=== PATIENT | female | born 1955 | race Caucasian/White ===

== ENCOUNTER 2020-05-15 23:49 | Inpatient (IN) ==
--- OUTSIDE RECORDS SUMMARY | 2020-05-15 23:52 | External Medical Summary | Continuity of Care Document ---
:1955 Author Name Gatito Boston Address Unavailable Unavailable , Care Team Providers Name Role Phone NonMNPG M.Latia Unavailable [email or web address] Active medical history not documented Allergies and Adverse Reactions Allergy history not documented Medications Medications not documented Procedures Procedures not documented Immunizations Immunizations not documented Plan of Treatment Planned Observations Planned Goals not documented Results No Known Results Results not documented
[2020-05-16 00:34] LABS: Basophils # (auto) 0.02 K/uL (0-0.2); Basophils % (auto) 0.2 %; Eosinophils # (auto) 0.17 K/uL (0-0.5); Eosinophils % (auto) 1.4 %; Hematocrit (blood only) 45.2 % (37-47); Hemoglobin 16.5 g/dL (12.0-16.0); Immature Granulocytes # (auto) 0.02 K/uL (0.00-0.02); Immature Granulocytes % (auto) 0.2 %; Lymphocytes # (auto) 1.33 K/uL (1.2-3.4); Lymphocytes % (auto) 10.7 %; Mean Corpuscular Hemoglobin 32.9 pg (25-34); Mean Corpuscular Hgb Conc 36.5 g/dL (32-36); Mean Platelet Volume 9.7 fL (7.4-10.4); Monocytes # (auto) 0.56 K/uL (0.11-0.59); Monocytes % (auto) 4.5 %; Neutrophils # (auto) 10.33 K/uL (1.4-6.5); Platelet Count 212 K/uL (130-400); RDW Coefficient of Variation 12.6 % (11.5-14.5); RDW Standard Deviation 41.6 fL (36.4-46.3); Red Blood Count 5.02 M/uL (4.2-5.4); White Blood Count 12.43 K/uL (4.8-10.8)
--- NOTE | 2020-05-16 00:40 | Emergency Department Note ---
Impression & Plan Pulmonary emboli, DKA (diabetic ketoacidoses) ED Provider Note NAME: HAMILTON CARVAJAL AGE: 65 SEX: F ARRIVES VIA: Ambulance INFORMANT: Patient ED PROVIDER(S): Dionne Miranda DO CHIEF COMPLAINT: Shortness of breath and anxiety PLAN: Disposition: Admitted to the [facility] service Condition: Guarded MEDICAL DECISION MAKING: This is a 65-year-old female patient with no PCP who presents to the emergency department complaining of anxiety and shortness of breath. Patient describes intermittent episodes of feeling anxious and as if she cannot catch her breath over the past couple of weeks. This specific episode was as a result of her son losing the one and only car richard that they had for her vehicle. According to EMS, the patient lives with her elderly and adult son in a home filled with so much stuff that it made for a very difficult extrication of this patient. The patient explained to me that she quite frequently does not get out of bed on certain days and uses a diaper. However, on some days, she does get out of bed to drive her adult son to work. She has not been to her primary care physician in many years. She became more concerned tonight because she found it quite difficult to catch her breath. CT scan confirms bilateral pulmonary emboli. The patient was also noted to have a blood sugar greater than 400 and evidence of DKA. O2 saturations were stable. ABG and electrolytes were normal. Triage Nursing notes reviewed and agree them. Additional history obtained from EMS Vital Signs: reviewed and remarkable for hypertension Differential diagnosis: PE, pneumonia, hyperglycemia, COVID-19, anxiety, CHF ER treatment provided: IV normal saline IV insulin IV heparin bolus IV heparin drip Diagnostics interpreted by me: ECG: Sinus tachycardia at 128 with a right bundle branch block and questionable ST segment elevation in the inferior leads Cardiac Monitoring: Sinus tachycardia at a rate of 120 Laboratory studies: See below Imaging studies: As per stat rad CT chest with contrast: Cardiomegaly. Atherosclerotic disease of aorta with no dissection or aneurysm. Multiple filling defects identified at the distal right pulmonary artery extending into the proximal upper or lower and middle lobe pulmonary artery and then into the mid proximal segmental branches. Similarly on the left there are filling defects identified at the distal left pulmonary artery then extending into the origin of the left upper lobe and left lower lobe pulmonary artery and corresponding mid proximal segmental branches. The RV to LV ratio is 1. Coronary artery calcifications are noted. Mild posterior dependent atelectasis otherwise clear lung parenchyma. No pleural effusion or pneumothorax. Degenerative disease of the spine. Lipoma overlying the right posterior lateral scapula. Consultation(s): None HPI: 65/F arrives for evaluation of anxiety. The patient presents to the emergency department feeling anxious and short of breath. The patient describes a similar episode just 5-6 nights ago. She has not been getting out of bed like she would normally. EMS found her hypoxic when they arrived at her home. She denies any chest pain or abdominal pain. She describes her anxiety is secondary to the fact that her adult son lost their only car richard to their vehicle. ROS: See above HPI for pertinent positives & negatives. A total of 10 systems reviewed and were otherwise negative. PAST MEDICAL HISTORY:Patient has not been to a primary care doctor many many years and denies any past medical history PAST SURGICAL HISTORY:She denies any surgeries to me FAMILY HISTORY:See Below SOCIAL HISTORY:She lives with her ; she lives with her adult son She does not smoke or drink alcohol. She does make some food for herself HOME MEDICATIONS:See Below ALLERGIES:See list VITALS:See Below PHYSICAL EXAMINATION: HEENT: Head - normocephalic and atraumatic. Pupils are equal, round, and reactive to light. Extraocular eye muscles are intact, and sclera are anicteric. Nose - moist nasal mucosa without discharge. Mouth - moist buccal mucosa. Oropharynx is nonerythematous and there is no tonsillar exudate or edema noted. Neck: Supple; no no JVD Heart: Tachycardic rate and regular rhythm. There is a normal S1 and S2 with no murmurs, clicks, or gallops appreciated. Lungs: Clear to auscultation bilaterally with no wheezes, rales, or rhonchi. Abdomen: Soft, completely nontender, nondistended, with good bowel sounds. There are no palpable pulsatile masses or hepatosplenomegaly. There is no guarding, rigidity, or rebound noted. Extremities: No evidence of cyanosis, clubbing, or edema. There are easily palpable peripheral pulses. Skin: warm and dry with good turgor and no rashes. ED COURSE: Times/Reassessments: 0005: The patient was evaluated in A4. A complete history and physical was performed. A twelve-lead EKG was obtained. An order was placed for continuous cardiac monitoring. The patient was in a sinus tachycardia at a rate of 120. The patient was bolused with 500 cc of normal saline solution. 0145: The patient was significantly hyperglycemic and was bolused with 10 Units of IV insulin 0220: The patient was reevaluated at this time and is feeling much better. O2 saturations are stable. I reviewed the results of the labs and CT scan with the patient. The patient was bolused with IV heparin and started on a heparin drip. She was given 10 mg of IV insulin. An ABG was obtained and showed no evidence of significant acidosis. I discussed the case with the [facility] hospitalist and they will evaluate for further management. I have personally spent greater than 50 minutes of critical care time in the direct management of this patient. This includes bedside care, interpretation of diagnostic studies, and testing, discussion with consultants, patient, and family members, and other required patient management activities. This 50 minutes is in excess of all separately billable procedures. Dionne Miranda DO Past Med/Surg History Social History Smoking Status: Never smoker Hx Alcohol Use: No Hx Substance Use: No Preferred Language: Mongolian Communication Ability: Effective Beliefs That Will Affect Care: Buddhist Current Living Situation: Spouse and Family Feels Safe at Home: No Would You Like to Speak to Someone About Your Situation: No Safety Concerns: Feels Safe At This Time Assistive Devices: Oxygen - Continuous Allergies Allergies Allergy/AdvReac Type Severity Reaction Status Date / Time Penicillins Allergy Intermediate Gastrointestinal Verified 05/16/20 01:13 Upset Home Meds Home Medications Medication Instructions Recorded Confirmed aspirin-caffeine [Anacin] 1 tab PO Q4H PRN 05/16/20 05/16/20 aspirin-caffeine [Elvin Back and 1 - 2 tab PO Q4 PRN 05/16/20 05/16/20 Body] Results & Data (ED) Vital Signs Vital Signs - 24 hr 05/16/20 00:09 05/16/20 00:20 05/16/20 00:30 Temperature 36.5 C Temperature Source Oral Pulse Rate 133 H 126 H Pulse Rate [Right Finger] Pulse Rate from SpO2 Sensor 125 H Respiratory Rate 20 22 Respiratory Effort / Characteristics Non-Labored Spontaneous Respiratory Depth Normal Respiratory Pattern Regular Blood Pressure 165/108 H 147/112 H Blood Pressure [Left Arm] Blood Pressure Mean 127 123 Blood Pressure Mean [Left Arm] Blood Pressure Position Lying Blood Pressure Position [Left Arm] Pulse Oximetry 83 L 95 95 Oxygen Delivery Method Room Air Nasal Cannula Nasal Cannula Oxygen Flow Rate 6 6 Sepsis Recent Fever Within 48 Hours No Sepsis New/Unexplained Change in Mental Status No Sepsis Action Taken by Nursing No Action Required 05/16/20 01:00 05/16/20 01:44 05/16/20 02:27 Temperature Temperature Source Pulse Rate 124 H Pulse Rate [Right Finger] 123 H 113 H Pulse Rate from SpO2 Sensor 124 H Respiratory Rate 14 20 24 Respiratory Effort / Characteristics Non-Labored Spontaneous Non-Labored Spontaneous Respiratory Depth Normal Normal Respiratory Pattern Regular Regular Blood Pressure 170/118 H Blood Pressure [Left Arm] 210/122 H 190/124 H Blood Pressure Mean 135 Blood Pressure Mean [Left Arm] 151 146 Blood Pressure Position Blood Pressure Position [Left Arm] Lying Lying Pulse Oximetry 94 92 92 Oxygen Delivery Method Nasal Cannula Nasal Cannula Nasal Cannula Oxygen Flow Rate 6 4 5 Sepsis Recent Fever Within 48 Hours Sepsis New/Unexplained Change in Mental Status Sepsis Action Taken by Nursing 05/16/20 03:00 05/16/20 03:37 Temperature Temperature Source Pulse Rate 116 H Pulse Rate [Right Finger] Pulse Rate from SpO2 Sensor 122 H Respiratory Rate 20 22 Respiratory Effort / Characteristics Respiratory Depth Respiratory Pattern Blood Pressure 201/136 H 214/145 H Blood Pressure [Left Arm] Blood Pressure Mean 157 168 Blood Pressure Mean [Left Arm] Blood Pressure Position Blood Pressure Position [Left Arm] Pulse Oximetry 93 93 Oxygen Delivery Method Oxygen Flow Rate Sepsis Recent Fever Within 48 Hours Sepsis New/Unexplained Change in Mental Status Sepsis Action Taken by Nursing Laboratory Data Result diagrams: 05/17/20 05:43 05/17/20 05:43 Lab Results 05/16/20 05/16/20 05/16/20 Range/Units 00:10 00:10 00:10 WBC 12.43 H (4.8-10.8) K/uL RBC 5.02 (4.2-5.4) M/uL Hgb 16.5 H (12.0-16.0) g/dL Hct 45.2 (37-47) % MCV 90.0 (80-100) fL MCH 32.9 (25-34) pg MCHC 36.5 H (32-36) g/dL RDW Std Deviation 41.6 (36.4-46.3) fL RDW Coeff of Jose Juan 12.6 (11.5-14.5) % Plt Count 212 (130-400) K/uL MPV 9.7 (7.4-10.4) fL Immature Gran % (Auto) 0.2 % Neut % (Auto) 83.0 % Lymph % (Auto) 10.7 % [place] % (Auto) 4.5 % Eos % (Auto) 1.4 % Baso % (Auto) 0.2 % Neut # (Auto) 10.33 H (1.4-6.5) K/uL Lymph # (Auto) 1.33 (1.2-3.4) K/uL [place] # (Auto) 0.56 (0.11-0.59) K/uL Eos # (Auto) 0.17 (0-0.5) K/uL Baso # (Auto) 0.02 (0-0.2) K/uL Immature Gran # (Auto) 0.02 (0.00-0.02) K/uL PT 11.1 (9.0-12.0) Seconds INR 1.1 (0.9-1.1) APTT 23.9 (21.0-31.0) Seconds PTT Ratio 0.9 D-Dimer 9100 H* (0-500) ug/L FEU ABG pH (7.35-7.45) ABG pCO2 (35-46) mmHg ABG pO2 (80-95) mmHg ABG HCO3 (19-24) mmol/L ABG O2 Saturation (90-95) % ABG Base Excess (-9-1.8) mEq/L Alfredo Test (Pos) Oxygen Given Sodium 134 L (136-145) mmol/L Potassium 3.7 (3.5-5.1) mmol/L Chloride 104 (98-107) mmol/L Carbon Dioxide 22 (21-32) mmol/L Anion Gap 8.0 (3-11) BUN 15 (7-18) mg/dl Creatinine 1.25 H (0.6-1.2) mg/dl Est Cr Clr Drug Dosing 53.7 ml/min Est GFR ( Amer) 51.5 Est GFR (Non-Af Amer) 44.5 BUN/Creatinine Ratio 12.2 (10-20) Glucose 410 H* (70-99) mg/dl POC Glucose (70-99) mg/dl Calcium 10.2 H (8.5-10.1) mg/dl Magnesium 1.8 (1.8-2.4) mg/dl Total Bilirubin 0.7 (0.2-1) mg/dl AST 25 (15-37) U/L ALT 33 (12-78) U/L Alkaline Phosphatase 140 H (45-117) U/L Troponin I 0.174 H* (0-0.045) ng/ml Total Protein 7.6 (6.4-8.2) gm/dl Albumin 3.7 (3.4-5.0) gm/dl Globulin 3.9 (2.5-4.0) gm/dl Albumin/Globulin Ratio 0.9 (0.9-2) Beta-Hydroxybutyric Acd 6.86 H (0.2-2.81) mg/dl COVID-19 Eval Order SARS-CoV-2 (PCR) (Negative) Influenza Type A (PCR) (Neg) Influenza Type B (PCR) (Neg) RSV (RT-PCR) (Neg) 05/16/20 05/16/20 05/16/20 Range/Units 00:33 00:33 03:02 WBC (4.8-10.8) K/uL RBC (4.2-5.4) M/uL Hgb (12.0-16.0) g/dL Hct (37-47) % MCV (80-100) fL MCH (25-34) pg MCHC (32-36) g/dL RDW Std Deviation (36.4-46.3) fL RDW Coeff of Jose Juan (11.5-14.5) % Plt Count (130-400) K/uL MPV (7.4-10.4) fL Immature Gran % (Auto) % Neut % (Auto) % Lymph % (Auto) % [place] % (Auto) % Eos % (Auto) % Baso % (Auto) % Neut # (Auto) (1.4-6.5) K/uL Lymph # (Auto) (1.2-3.4) K/uL [place] # (Auto) (0.11-0.59) K/uL Eos # (Auto) (0-0.5) K/uL Baso # (Auto) (0-0.2) K/uL Immature Gran # (Auto) (0.00-0.02) K/uL PT (9.0-12.0) Seconds INR (0.9-1.1) APTT (21.0-31.0) Seconds PTT Ratio D-Dimer (0-500) ug/L FEU ABG pH 7.42 (7.35-7.45) ABG pCO2 33 L (35-46) mmHg ABG pO2 65 L (80-95) mmHg ABG HCO3 21 (19-24) mmol/L ABG O2 Saturation 93.8 (90-95) % ABG Base Excess -2.5 (-9-1.8) mEq/L Alfredo Test Pos (Pos) Oxygen Given 5L Sodium (136-145) mmol/L Potassium (3.5-5.1) mmol/L Chloride (98-107) mmol/L Carbon Dioxide (21-32) mmol/L Anion Gap (3-11) BUN (7-18) mg/dl Creatinine (0.6-1.2) mg/dl Est Cr Clr Drug Dosing ml/min Est GFR ( Amer) Est GFR (Non-Af Amer) BUN/Creatinine Ratio (10-20) Glucose (70-99) mg/dl POC Glucose (70-99) mg/dl Calcium (8.5-10.1) mg/dl Magnesium (1.8-2.4) mg/dl Total Bilirubin (0.2-1) mg/dl AST (15-37) U/L ALT (12-78) U/L Alkaline Phosphatase (45-117) U/L Troponin I (0-0.045) ng/ml Total Protein (6.4-8.2) gm/dl Albumin (3.4-5.0) gm/dl Globulin (2.5-4.0) gm/dl Albumin/Globulin Ratio (0.9-2) Beta-Hydroxybutyric Acd (0.2-2.81) mg/dl COVID-19 Eval Order CovFluRsv at [facility] SARS-CoV-2 (PCR) NEGATIVE (Negative) Influenza Type A (PCR) Negative (Neg) Influenza Type B (PCR) Negative (Neg) RSV (RT-PCR) Negative (Neg) 03/27/21 Range/Units 03:35 WBC (4.8-10.8) K/uL RBC (4.2-5.4) M/uL Hgb (12.0-16.0) g/dL Hct (37-47) % MCV (80-100) fL MCH (25-34) pg MCHC (32-36) g/dL RDW Std Deviation (36.4-46.3) fL RDW Coeff of Jose Juan (11.5-14.5) % Plt Count (130-400) K/uL MPV (7.4-10.4) fL Immature Gran % (Auto) % Neut % (Auto) % Lymph % (Auto) % [place] % (Auto) % Eos % (Auto) % Baso % (Auto) % Neut # (Auto) (1.4-6.5) K/uL Lymph # (Auto) (1.2-3.4) K/uL [place] # (Auto) (0.11-0.59) K/uL Eos # (Auto) (0-0.5) K/uL Baso # (Auto) (0-0.2) K/uL Immature Gran # (Auto) (0.00-0.02) K/uL PT (9.0-12.0) Seconds INR (0.9-1.1) APTT (21.0-31.0) Seconds PTT Ratio D-Dimer (0-500) ug/L FEU ABG pH (7.35-7.45) ABG pCO2 (35-46) mmHg ABG pO2 (80-95) mmHg ABG HCO3 (19-24) mmol/L ABG O2 Saturation (90-95) % ABG Base Excess (-9-1.8) mEq/L Alfredo Test (Pos) Oxygen Given Sodium (136-145) mmol/L Potassium (3.5-5.1) mmol/L Chloride (98-107) mmol/L Carbon Dioxide (21-32) mmol/L Anion Gap (3-11) BUN (7-18) mg/dl Creatinine (0.6-1.2) mg/dl Est Cr Clr Drug Dosing ml/min Est GFR ( Amer) Est GFR (Non-Af Amer) BUN/Creatinine Ratio (10-20) Glucose (70-99) mg/dl POC Glucose 204 H (70-99) mg/dl Calcium (8.5-10.1) mg/dl Magnesium (1.8-2.4) mg/dl Total Bilirubin (0.2-1) mg/dl AST (15-37) U/L ALT (12-78) U/L Alkaline Phosphatase (45-117) U/L Troponin I (0-0.045) ng/ml Total Protein (6.4-8.2) gm/dl Albumin (3.4-5.0) gm/dl Globulin (2.5-4.0) gm/dl Albumin/Globulin Ratio (0.9-2) Beta-Hydroxybutyric Acd (0.2-2.81) mg/dl COVID-19 Eval Order SARS-CoV-2 (PCR) (Negative) Influenza Type A (PCR) (Neg) Influenza Type B (PCR) (Neg) RSV (RT-PCR) (Neg) Administered Medications Heparin Sodium/Dextrose (Heparin Sodium/Dextrose) 25,000 units in 500 mls @ 30 mls/hr IV .[id number] [facility]; Protocol Stop: 06/15/20 02:29 Last Titration: 05/17/20 06:52 Dose: 1,700 units/hr, 34 mls/hr Documented by: [id number] Cosigned by: [id number] Titration: 05/17/20 06:21 Dose: 1,700 units/hr, 34 mls/hr Documented by: [id number] Cosigned by: [id number] Titration: 05/16/20 23:03 Dose: 1,700 units/hr, 34 mls/hr Documented by: [id number] Cosigned by: [id number] Admin: 05/16/20 19:17 Dose: 1,600 units/hr, 32 mls/hr Documented by: [id number] Cosigned by: [id number] Titration: 05/16/20 19:17 Dose: 1,600 units/hr, 32 mls/hr Documented by: [id number] Cosigned by: [id number] Titration: 05/16/20 15:53 Dose: 1,600 units/hr, 32 mls/hr Documented by: [id number] Cosigned by: [id number] Titration: 05/16/20 15:00 Dose: 1,500 units/hr, 30 mls/hr Documented by: [id number] Cosigned by: [id number] Titration: 05/16/20 09:13 Dose: 1,500 units/hr, 30 mls/hr Documented by: [id number] Cosigned by: [id number] Titration: 05/16/20 07:08 Dose: 1,400 units/hr, 28 mls/hr Documented by: [id number] Cosigned by: [id number] Admin: 05/16/20 02:38 Dose: 1,400 units/hr, 28 mls/hr Documented by: [id number] Cosigned by: [id number] Insulin Aspart (Insulin Aspart 100 Units/Ml 3 Ml Pen) 0 units SC ACHS [facility] Stop: 06/15/20 07:29 Last Admin: 05/16/20 20:47 Dose: 2 units Documented by: [id number] Cosigned by: [id number] Admin: 05/16/20 17:09 Dose: 5 units Documented by: [id number] Cosigned by: [id number] Admin: 05/16/20 12:21 Dose: 9 units Documented by: [id number] Cosigned by: [id number] Admin: 05/16/20 08:13 Dose: 6 units Documented by: [id number] Cosigned by: [id number] Lisinopril (Lisinopril 20 Mg Tab) 20 mg PO QAM [facility] Stop: 06/15/20 08:59 Last Admin: 05/16/20 07:36 Dose: 20 mg Documented by: [id number] Discontinued Medications Heparin Sodium (Porcine) (Heparin Sod (Porcine) 1000 Unit/Ml 10 Ml Vial) Confirm Administered Dose 10,000 units .ROUTE .STK-MED ONE Stop: 05/16/20 02:33 Last Admin: 05/16/20 02:39 Dose: Not Given Documented by: [id number] Heparin Sodium (Porcine) (Heparin Sod (Porcine) 1000 Unit/Ml 10 Ml Vial) Confirm Administered Dose 10,000 units .ROUTE .STK-MED ONE Stop: 05/16/20 02:36 Last Admin: 05/16/20 02:37 Dose: 5,000 units Documented by: [id number] Cosigned by: [id number] Heparin Sodium/Dextrose (Heparin Iv Standard With Bolus) 1 ea IV NOW STA; Protocol Stop: 05/16/20 02:27 Last Admin: 05/16/20 02:38 Dose: Not Given Documented by: [id number] Hydralazine HCl (Hydralazine Hcl 20 Mg/Ml Vial) 10 mg IV Q4H PRN PRN Reason: Hypertension Stop: 06/15/20 04:55 Last Admin: 05/16/20 05:10 Dose: 10 mg Documented by: [id number] Hydralazine HCl (Hydralazine Hcl 20 Mg/Ml Vial) Confirm Administered Dose 20 mg .ROUTE .STK-MED ONE Stop: 05/16/20 05:04 Last Admin: 05/16/20 05:44 Dose: Not Given Documented by: [id number] Sodium Chloride (Nss) 500 mls @ 999 mls/hr IV .Q31M ONE Stop: 05/16/20 01:48 Last Infusion: 05/16/20 02:06 Dose: 0 mls/hr Documented by: [id number] Admin: 05/16/20 01:39 Dose: 999 mls/hr Documented by: [id number] Sodium Chloride (Nss) 500 mls @ 125 mls/hr IV .Q4H MOHIT Stop: 06/15/20 01:29 Last Infusion: 05/16/20 07:11 Dose: 0 mls/hr Documented by: [id number] Admin: 05/16/20 02:26 Dose: 125 mls/hr Documented by: [id number] Sodium Chloride (Nss 1000ml) 1,000 mls @ 125 mls/hr IV .Q8H MOHIT Stop: 06/15/20 05:14 Last Infusion: 05/16/20 15:58 Dose: 0 mls/hr Documented by: [id number] Admin: 05/16/20 13:12 Dose: 125 mls/hr Documented by: [id number] Infusion: 05/16/20 13:12 Dose: 0 mls/hr Documented by: [id number] Admin: 05/16/20 05:28 Dose: 125 mls/hr Documented by: [id number] Insulin Glargine (Insulin Glargine Solostar 100 Units/Ml 3 Ml Pen) 20 units SC BID MOHIT Stop: 06/15/20 08:59 Last Admin: 05/16/20 08:12 Dose: 20 units Documented by: [id number] Cosigned by: [id number] Insulin Human Regular (Novolin-R Insulin Per Unit Charge) 10 units IV NOW STA Stop: 05/16/20 02:17 Last Admin: 05/16/20 02:25 Dose: 10 units Documented by: [id number] Cosigned by: [id number] Ioversol (Optiray 320 125ml) 120 ml IV ONCE ONE Stop: 05/16/20 01:48 Last Admin: 05/16/20 01:47 Dose: 120 ml Documented by: [id number] Potassium Chloride (Potassium Chloride Crtab 20 Meq Tabcr) 40 meq PO NOW STA Stop: 05/16/20 15:52 Last Admin: 05/16/20 17:07 Dose: 40 meq Documented by: [id number] Discharge Plan Visit Data Chief Complaint: Cardiac Assessment Stated Complaint: Anxiety ED Provider: Dionne Miranda Discharge Problem: Pulmonary emboli, DKA (diabetic ketoacidoses) Patient Disposition: Admitted As Inpatient Discharge Instructions Interventions: ED Discharge Assessment Last Done: 05/16/20 04:34 Discharge Problem: Pulmonary emboli Qualifiers: Pulmonary embolism type: multiple subsegmental (without acute cor pulmonale) Qualified Code(s): I26.94 - Multiple subsegmental pulmonary emboli without acute cor pulmonale DKA (diabetic ketoacidoses) Qualifiers: Diabetes mellitus type: type 2 Diabetes mellitus complication detail: without coma Qualified Code(s): E11.10 - Type 2 diabetes mellitus with ketoacidosis without coma
[2020-05-16 00:48] LABS: Albumin Globulin Ratio 0.9 (0.9-2); Albumin Level 3.7 gm/dl (3.4-5.0); BUN Creatinine Ratio 12.2 (10-20); Bilirubin,Total 0.7 mg/dl (0.2-1); Calcium 10.2 mg/dl (8.5-10.1); Creatinine Clr Calc Pharmacy 53.7 ml/min; Est GFR (African American) 51.5; Est GFR (Non-African American) 44.5; Globulin 3.9 gm/dl (2.5-4.0); Magnesium 1.8 mg/dl (1.8-2.4); Potassium 3.7 mmol/L (3.5-5.1); Total Protein 7.6 gm/dl (6.4-8.2); Troponin I 0.174 ng/ml (0-0.045)
[2020-05-16 01:04] LABS: Beta-Hydroxybutyrate 6.86 mg/dl (0.2-2.81)
[2020-05-16 01:05] LABS: INR 1.1 (0.9-1.1); Partial Thromboplastin Ratio 0.9; Partial Thromboplastin Time 23.9 Seconds (21.0-31.0); Prothrombin Time 11.1 Seconds (9.0-12.0)
[2020-05-16 01:07] LABS: D Dimer 9100 ug/L FEU (0-500)
[2020-05-16] MEDS ORDERED: SODIUM CHLORIDE 0.9% 500 ML IV ONE (01:18)
[2020-05-16 01:26] LABS: Influenza A virus by PCR Negative (Neg); Influenza B virus by PCR Negative (Neg); RSV by PCR Negative (Neg); SARS CoV2 RNA(COVID-19) InHosp NEGATIVE (Negative)
[2020-05-16] MEDS ORDERED: SODIUM CHLORIDE 0.9% 500 ML IV SCH (01:30)
[2020-05-16] MEDS ORDERED: OPTIRAY 320 125ml IV ONE (01:47)
[2020-05-16] MEDS ORDERED: NovoLIN-R INSULIN PER UNIT CHARGE IV STA (02:16)
[2020-05-16] MEDS ORDERED: Heparin IV Adult Wt-Based Standard WITH Bolus Protocol IV STA (02:26)
[2020-05-16] MEDS ORDERED: HEPARIN SOD (PORCINE) 1000 UNIT/ML ONE ×2 (02:32→02:35)
[2020-05-16] MEDS: HEPARIN SODIUM/DEXTROSE 25,000 UNITS/500 ML BAG IV SCH ×2 (02:38→19:17)
--- NOTE | 2020-05-16 03:22 | History & Physical Report ---
Date of Service May 16, 2020 Assessment & Plan (1) Pulmonary emboli: 65-year-old female with no past medical history listed (does not have a PCP) presents with concerns of shortness of breath found to have multiple pulmonary emboli and hyperglycemia. Pulmonary emboli Chest CTA ([facility]): Multiple filling defect identified at the distal right pulmonary artery extending into the proximal upper or lower and middle lobe pulmonary artery and then into the mid proximal segmental branches. Similarly, on the left there are filling defect identified at the distal left pulmonary artery then extending into the origin of the left upper lobe and left lower lobe pulmonary artery and corresponding mid proximal segmental branches. Heparin gtt started Supplemental O2 as needed. Patient currently on 5 L nasal cannula. No home O2 requirements Venous Doppler of bilateral lower extremity pending Elevated troponin EKG: Per interpretation sinus tachycardia at 128 with a right bundle branch block and possible ST segment elevation in the inferior leads Initial troponin admission 0.174. We will continue to trend x2 every 6 hours Likely secondary to demand ischemia in setting of tachycardia. Pt with no CP complaints, lower concern for ACS Hyperglycemia On admission glucose 410, beta hydroxybutyric acid 6.86. No acidosis or AG Given IV insulin regular 10 units in ED. Repeat glucose [address] on SSI Patient with no documented history of diabetes, however does not follow with a PCP A1c in a.m. Continue IVF NSS at 125 mls/hr Hypertension No documented history, but again patient does not follow with PCP BP as high as 214/145 in ED. No s/s of end organ damage We will start patient on IRINA inhibitor in anticipation of DM diagnosis for renal protection. Titrate as necessary move forward. May very well likely need multiple medication management IV hydralazine 10 mg as needed FEN/GI: NSS at 125. DM 2 diet DVT prophylaxis: Heparin gtt CODE STATUS: Full code Dispo: Med telemetry. Patient will need a PCP on discharge History of Present Illness Chief Complaint: Shortness of breath Primary Care Provider: NO PCP 65-year-old female with no past medical history listed (does not have a PCP) presents with concerns of shortness of breath that started this evening. Similar occurrence last Monday but none ever before then. Noted that she got up from the bedroom to go to the bathroom and became dyspneic. Described as feeling like she had a panic attack, which is not new for her. Duration on and off from time EMS picked her up to arrival in ER. 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 Associated palpitations. Denies any associated chest pain, syncope o r near syncope, edema, diaphoresis. Pertinent labs: WBC 12.43, sodium 134, creatinine 1.25, glucose 410, troponin 0 0.174, beta hydroxybutyric acid 6.86 EKG: Sinus tachycardia at 128 with a right bundle branch block and possible ST segment elevation in the inferior leads ABG: pH 7.42, PCO2 33, PO2 65, HCO3 21 Chest CTA ([facility]): Multiple filling defect identified at the distal right pulmonary artery extending into the proximal upper or lower and middle lobe pulmonary artery and then into the mid proximal segmental branches. Similarly, on the left there are filling defect identified at the distal left pulmonary artery then extending into the origin of the left upper lobe and left lower lobe pulmonary artery and corresponding mid proximal segmental branches. ER course: IV heparin gtt, IV insulin human regular 10 units, NSS Allergies Allergy/AdvReac Type Severity Reaction Status Date / Time Penicillins Allergy Intermediate Gastrointestinal Verified 05/16/20 01:13 Upset Home Medications Medication Instructions Recorded Confirmed Type aspirin-caffeine [Anacin] 1 tab PO Q4H PRN 05/16/20 05/16/20 History aspirin-caffeine [Elvin Back and 1 - 2 tab PO Q4 PRN 05/16/20 05/16/20 History Body] Past Med/Surg History Social History Smoking Status: Never smoker Hx Alcohol Use: No Hx Substance Use: No Preferred Language: Argentine Communication Ability: Effective Beliefs That Will Affect Care: Confucianist Current Living Situation: Spouse and Family Feels Safe at Home: No Would You Like to Speak to Someone About Your Situation: No Safety Concerns: Feels Safe At This Time Assistive Devices: Oxygen - Continuous Review of Systems Review of Systems: All systems reviewed & are unremarkable except as noted in HPI & below Physical Exam Constitutional: WD/WN, vitals as above Eyes: PERRL, conjunctivae normal, anicteric sclerae ENMT: external ear and nose normal, oropharynx normal Respiratory: normal respiratory effort, lungs clear to auscultation Cardiovascular: Rate/Rhythm: regular rhythm and + tachycardic Gastrointestinal (Abdomen): normal bowel sounds, soft, nontender, no hepatosplenomegaly Skin: no rashes, warm and dry Psychiatric: Orientation: alert and oriented x 3 Affect: + anxious affect Results & Data Results & Data ([facility]) Vital Signs (Past 12 Hours) Vital Signs Temp Pulse Pulse Resp BP BP Pulse Ox 05/16/20 02:27 113 H 24 190/124 H 92 05/16/20 01:44 123 H 20 210/122 H 92 05/16/20 01:00 124 H 14 170/118 H 94 05/16/20 00:30 126 H 22 147/112 H 95 05/16/20 00:20 95 05/16/20 00:09 36.5 C 133 H 20 165/108 H 83 L Laboratory Results Laboratory Results - last 24 hr 05/16/20 05/16/20 05/16/20 00:10 00:10 00:10 WBC 12.43 H RBC 5.02 Hgb 16.5 H Hct 45.2 MCV 90.0 MCH 32.9 MCHC 36.5 H RDW Std Deviation 41.6 RDW Coeff of Jose Juan 12.6 Plt Count 212 MPV 9.7 Immature Gran % (Auto) 0.2 Neut % (Auto) 83.0 Lymph % (Auto) 10.7 Dixon % (Auto) 4.5 Eos % (Auto) 1.4 Baso % (Auto) 0.2 Neut # (Auto) 10.33 H Lymph # (Auto) 1.33 Dixon # (Auto) 0.56 Eos # (Auto) 0.17 Baso # (Auto) 0.02 Immature Gran # (Auto) 0.02 PT 11.1 INR 1.1 APTT 23.9 PTT Ratio 0.9 D-Dimer 9100 H* Sodium 134 L Potassium 3.7 Chloride 104 Carbon Dioxide 22 Anion Gap 8.0 BUN 15 Creatinine 1.25 H Est Cr Clr Drug Dosing 53.7 Est GFR ( Amer) 51.5 Est GFR (Non-Af Amer) 44.5 BUN/Creatinine Ratio 12.2 Glucose 410 H* Calcium 10.2 H Magnesium 1.8 Total Bilirubin 0.7 AST 25 ALT 33 Alkaline Phosphatase 140 H Troponin I 0.174 H* Total Protein 7.6 Albumin 3.7 Globulin 3.9 Albumin/Globulin Ratio 0.9 Beta-Hydroxybutyric Acd 6.86 H COVID-19 Eval Order SARS-CoV-2 (PCR) Influenza Type A (PCR) Influenza Type B (PCR) RSV (RT-PCR) 05/16/20 05/16/20 00:33 00:33 WBC RBC Hgb Hct MCV MCH MCHC RDW Std Deviation RDW Coeff of Jose Juan Plt Count MPV Immature Gran % (Auto) Neut % (Auto) Lymph % (Auto) Dixon % (Auto) Eos % (Auto) Baso % (Auto) Neut # (Auto) Lymph # (Auto) Dixon # (Auto) Eos # (Auto) Baso # (Auto) Immature Gran # (Auto) PT INR APTT PTT Ratio D-Dimer Sodium Potassium Chloride Carbon Dioxide Anion Gap BUN Creatinine Est Cr Clr Drug Dosing Est GFR ( Amer) Est GFR (Non-Af Amer) BUN/Creatinine Ratio Glucose Calcium Magnesium Total Bilirubin AST ALT Alkaline Phosphatase Troponin I Total Protein Albumin Globulin Albumin/Globulin Ratio Beta-Hydroxybutyric Acd COVID-19 Eval Order CovFluRsv at [facility] SARS-CoV-2 (PCR) NEGATIVE Influenza Type A (PCR) Negative Influenza Type B (PCR) Negative RSV (RT-PCR) Negative Medications Administered Current Inpatient Medications Sodium Chloride (Nss) 500 mls @ 125 mls/hr IV .Q4H [facility] Stop: 06/15/20 01:29 Last Admin: 05/16/20 02:26 Dose: 125 mls/hr Documented by: Heparin Sodium/Dextrose (Heparin Sodium/Dextrose) 25,000 units in 500 mls @ 28 mls/hr IV .[id number] [facility]; Protocol Stop: 06/15/20 02:29 Last Admin: 05/16/20 02:38 Dose: 1,400 units/hr, 28 mls/hr Documented by: Code Status & VTE Plan Code Status Full Supervising Physician Co-Signing Physician Notes Attending addendum: I have physically seen this patient, have supervised the medical residents activities, and agree with the H&P unless as otherwise noted. Assessment and Plan: Multiple bilateral pulmonary emboli- Heparin drip per protocol Hypercoagulable work-up Order lower extremity venous Dopplers Elevated troponin- Likely associated with right heart strain and PEs The patient will be admitted to telemetry for serial cardiac enzymes, serial EKG's, cardiac rhythm monitoring and a 2-D echocardiogram with Dopplers. Consult cardiology Remaining orders and notations as noted Resident Activity Tracking Resident Involvement: Resident Care Provided Care Provided: Adult [facility] Medicine
[2020-05-16 03:26] LABS: Base Excess ABG -2.5 mEq/L (-9-1.8); HCO3 ABG 21 mmol/L (19-24); Oxygen Saturation ABG 93.8 % (90-95); PCO2 ABG 33 mmHg (35-46); PO2 ABG 65 mmHg (80-95); pH ABG 7.42 (7.35-7.45)
[2020-05-16 03:29] LABS: Allen Test Pos (Pos)
[2020-05-16] MEDS ORDERED: GLUCAGON FOR INJ 1 MG VIAL SQ PRN (04:56)
[2020-05-16] MEDS ORDERED: DEXTROSE 50% 50 ML SYRINGE IV PRN (04:56)
[2020-05-16] MEDS ORDERED: MoRPHine SULFATE 2 MG/ML CARP IV PRN (04:56)
[2020-05-16] MEDS ORDERED: ONDANSETRON INJ 2 MG/ML 2 ML VIAL IV PRN (04:56)
[2020-05-16] MEDS ORDERED: hydrALAZINE HCL 20 MG/ML VIAL IV PRN (04:56)
[2020-05-16] MEDS ORDERED: NITROGLYCERIN SL 0.4 MG/TAB TAB SL PRN (04:56)
[2020-05-16] MEDS ORDERED: CARBOHYDRATES FOR HYPOGLYCEMIA PO PRN (04:56)
[2020-05-16] MEDS ORDERED: GLUCOSE 40% GEL 15 GM TUBE PO PRN (04:56)
[2020-05-16] MEDS ORDERED: ACETAMINOPHEN 325 MG TAB PO PRN (04:56)
[2020-05-16] MEDS ORDERED: GLUCOSE 10 TABS/TUBE PO PRN (04:56)
[2020-05-16] MEDS ORDERED: ALUMINUM/MAGNESIUM SUSP 30 ML UDC PO PRN (04:56)
[2020-05-16] MEDS ORDERED: hydrALAZINE HCL 20 MG/ML VIAL ONE (05:03)
[2020-05-16] MEDS: SODIUM CHLORIDE 0.9% 1000ML 1,000 ML IV SCH ×2 (05:28→13:12)
[2020-05-16] MEDS ORDERED: MICONAZOLE NITRATE POWDER 43 GM EXT PRN (06:34)
[2020-05-16 07:26] LABS: Albumin Globulin Ratio 0.9 (0.9-2); Albumin Level 3.4 gm/dl (3.4-5.0); BUN Creatinine Ratio 17.3 (10-20); Bilirubin,Total 0.7 mg/dl (0.2-1); Calcium 9.2 mg/dl (8.5-10.1); Creatinine Clr Calc Pharmacy 85.4 ml/min; Est GFR (African American) 89.8; Est GFR (Non-African American) 77.5; Globulin 3.8 gm/dl (2.5-4.0); Potassium 3.3 mmol/L (3.5-5.1); Total Protein 7.2 gm/dl (6.4-8.2)
[2020-05-16] MEDS: lisinopril 20 MG TAB PO SCH (07:36)
--- NOTE | 2020-05-16 07:51 | CT Scan Report ---
CHEST CTA for PULMONARY ARTERIES CT DOSE: 830.97 mGy.cm HISTORY: Cough. Shortness of breath. TECHNIQUE: Multiaxial CT images of the chest were performed following the intravenous administration of contrast to evaluate the pulmonary arteries. Maximal intensity projection images were also obtaine d. A dose lowering technique was utilized adhering to the principles of ALARA. COMPARISON STUDY: None. FINDINGS: The heart is mildly enlarged and there is evidence for right-sided heart strain injury by f lattening of the interventricular septum and enlargement of the main pulmonary artery measuring 3.6 c m in diameter. Extensive bilateral pulmonary emboli involving the distal bilateral main pulmonary art eries and majority of the branches. No mediastinal hilar lymphadenopathy. Normal esophagus. Limited v iews of the upper abdomen demonstrate normal liver and spleen. No pleural or pericardial effusions. N o fractures within the visualized osseous structures. A 4 mm nodule within the left lower lobe on william ge 66. An intramuscular lipoma within the right shoulder measuring 6.8 cm. A 4 mm subpleural nodule a long the right minor fissure on image 149. No focal lung consolidations to suggest pneumonia or pulmo nary infarct at this time. IMPRESSION: 1. Extensive bilateral pulmonary emboli with evidence for right-sided heart strain. 2. There are 2 subcentimeter indeterminate pulmonary nodules measuring up to 4 mm. Please refer to th e chart below for recommended follow-up. 3. A 6.8 cm right shoulder intramuscular lipoma. Please refer to below summary of Fleischner criteria recommendations for follow-up of incidental CT n odules (Ronni Forbes, Guidelines for management of small pulmonary nodules detected on CT scans: A sta tement from the Fleischner Society, Radiology 237: [phone].) SOLID NODULES Solitary nodule size: <6 mm * Low risk patients: no follow-up needed * high risk patients: optional CT at 12 months Solitary nodule size: 6-8 mm * Low risk patients: follow-up at 6-12 months, then consider further follow-up at 18-24 months * high risk patients: initial follow-up CT at 6-12 months and then at 18-24 months if no change Solitary nodule size: >8 mm * either low or high risk patients - consider follow-up CT at 3 months, and/or CT-PET, and/or biopsy Multiple nodules size: <6 mm * Low risk patients: no routine follow-up * high risk patients: optional CT at 12 months Multiple nodules size: 6-8 mm * Low risk patients: follow-up at 3-6 months, then consider further follow-up at 18-24 months * high risk patients: follow-up at 3-6 months, then at 18-24 months if no change Multiple nodules size: >8 mm * Low risk patients: follow-up at 3-6 months, then consider further follow-up at 18-24 months * high risk patients: follow-up at 3-6 months, then at 18-24 months if no change Note: newly detected indeterminate nodule in persons 35 years of age or older. * Low risk patients: minimal or absent history of smoking and/or other known risk factors * high risk patients: history of smoking or of other known risk factors (e.g. first degree relative with lung cancer, or exposure to asbestos, radon, uranium) * if a nodule up to 8 mm is partly solid or is ground glass further follow-up is required after 24 m onths to exclude possible slow growing adenocarcinoma (SHARMILA) SUBSOLID NODULES Solitary pure ground-glass nodule * nodule size <6 mm - no CT follow-up required * nodule size >=6 mm - follow-up CT at 6-12 months, then every 2 years until 5 years Solitary part-solid nodule * nodule size <6 mm - no CT follow-up required * nodule size >=6 mm - follow-up CT at 3-6 months. If unchanged, and solid component remains <6 mm, then annual follow-up for 5 years Multiple subsolid nodules * nodule size <6 mm - follow-up CT at 3-6 months, consider further follow-up at 2 and 4 years if sta ble * nodule size >=6 mm - follow-up CT at 3-6 months, subsequent management based on the most suspiciou s nodule(s) ACT 112: Negative or not required by law. Electronically signed by: Tutu Villarreal M.D. 05/16/2020 7:50 AM
--- NOTE | 2020-05-16 08:12 | XRay Report ---
XR chest 1V portable HISTORY: Dyspnea COMPARISON: None. FINDINGS: No pneumothorax. No pleural effusions. The heart is mildly enlarged. No new focal lung cons olidations to suggest pneumonia. No evidence for pulmonary edema. IMPRESSION: Mild cardiomegaly. ACT 112: Negative or not required by law. Electronically signed by: Tutu Villarreal M.D. 05/16/2020 8:10 AM
[2020-05-16] MEDS: INSULIN ASPART 100 UNITS/ML 3 ML PEN SC SCH ×4 (08:13→20:47)
[2020-05-16 08:54] LABS: Partial Thromboplastin Ratio 1.7; Partial Thromboplastin Time 44.7 Seconds (21.0-31.0)
[2020-05-16] MEDS ORDERED: INSULIN GLARGINE SOLOSTAR 100 UNITS/ML 3 ML PEN SC SCH (09:00)
[2020-05-16] MEDS ORDERED: lisinopril 10 MG TAB PO SCH (09:00)
[2020-05-16 09:16] LABS: Troponin I 0.381 ng/ml (0-0.045)
[2020-05-16 09:25] LABS: Estimated Average Glucose 197 mg/dl; Hemoglobin A1C 8.5 % (4.5-5.6)
--- NOTE | 2020-05-16 10:35 | Ultrasound Report ---
BILATERAL LOWER EXTREMITY VENOUS DOPPLER HISTORY: Shortness of breath. Pulmonary emboli. COMPARISON STUDY: None. FINDINGS: There is normal compressibility, flow, and augmentation within the bilateral lower extremit y deep venous systems. IMPRESSION: No DVT within the right or left lower extremity. ACT 112: Negative or not required by law. Electronically signed by: Tutu Villarreal M.D. 05/16/2020 10:34 AM
[2020-05-16 10:58] LABS: Appearance Urine Clear (Clear); Bilirubin Urine Negative (Negative); Blood Urine Negative (Negative); Color Urine Yellow; Glucose Urine UA Trace (Negative); Ketones Urine Trace (Negative); Leukocyte Esterase Urine Negative (Negative); Nitrite Urine Negative (Negative); Protein Urine Negative (Negative); Specific Gravity Urine 1.028 (1.000-1.030); Urobilinogen Urine Negative (Negative)
--- NOTE | 2020-05-16 12:21 | Hospitalist Progress Note ---
Date of Service May 16, 2020 Assessment & Plan (1) Pulmonary emboli: 65-year-old female with no past medical history listed (does not have a PCP) presents with concerns of shortness of breath found to have multiple pulmonary emboli and hyperglycemia. Pulmonary emboli: On admission with significant SOB, elevated d dimer to 9000. Chest CTA showed extensive bilateral pulmonary emboli with evidence for right- sided heart strain. Venous Doppler of bilateral lower extremity without evidence of DVT. Heparin gtt started, will continue for now with eventual transition to DOAC. Continue PRN supplemental oxygen, titrate off as able. Would consider this event unprovoked as no known risk factors, no precipitating events. Will require routine cancer screening in outpatient setting such as PAP, colonoscopy, mammography to rule out cancer is cause of PE. Elevated troponin: Initial EKG with sinus tachycardia with right bundle branch block and possible ST segment elevation in the inferior leads. Troponin trend 0.174 -> 0.381 -> 0.302 without chest pain. Likely secondary to demand ischemia in setting of tachycardia and right heart strain due to PE. Echocardiogram ordered to evaluate EF and wall motion for abnormalities. Hyperglycemia On admission glucose 410, beta hydroxybutyric acid 6.86. No acidosis or anion gap. Hgb A1c of 8.5%. Given IV regular insulin 10 units in ED. Continue Lantus 20 units daily with SSI; adjust dosing based on insulin need. Hypertension BP as high as 214/145 in ED, without signs of end-organ damage. Patient started on IRINA inhibitor (lisinopril 20mg daily) with more normalized BP this afternoon. Continue to monitor and titrate lisinopril as needed. BMP daily while admitted to monitor renal function. Pulmonary nodule: On CTA was noted to have two 4 mm indeterminate pulmonary nodules. Given unclear cause of PE, may require yearly CT to follow nodules. No history of smoking. Hypokalemia: K 3.3 today; repleted with KCl 40meq PO. Repeat BMP tomorrow AM. CODE STATUS: Full code FEN/GI: DM2 diet DVT prophylaxis: Heparin gtt Dispo: Med/Surg with Telemetry. Patient will follow up with Dr. Samayoa on discharge. Admission and Anticipated Discharge Date Admission Date: May 16, 2020 Supervising Physician Co-Signing Physician Notes Patient seen and examined independently of PGY-2 Dr. Samayoa. Agree with history, exam findings, assessment and plan of care as outlined. In brief, Ms. Tubbs is a 65 year old previously health female admitted with dyspnea, tachycardia found to have multiple bilateral PE, hyperglycemia and elevated blood pressures. This morning, she still feels a bit short of breath, but denies chest pain. She is overwhelmed with all the new information and new diagnoses this admission. She has not been to see a primary care provider in some time. There is not family history of VTE. Vital signs and nursing notes reviewed. Worried and anxious appearing. Breathing comfortably on 5L NC. Lungs are clear to auscultation without wheezes, ronchi or rales. Heart with regular rate the rhythm. No lower extremity edema. 1. Bilateral PE. Unprovoked. CTA with multiple bilateral PE and evidence of right heart strain. Venous Doppler of the bilateral lower extremities is negative for DVT. On heparin gtt with plans to transition to DOAC prior to disc harge. Continues to require supplemental O2. Will wean down as we are able. TTE pending. 2. Elevated troponin. Likely demand ischemia with tachycardia and PE. 0.174?0.381?0.302 3. Hyperglycemia. Diagnostic of DM. A1C 8.5. Received 10u regular insulin in the ED. Lantus 20U daily with sliding scale. Will adjust lantus based on sliding scale needs. certified adapted physical educator consulted. Stopped IVFs. 4. Hypertension. New diagnosis. Started Lisinopril 20mg. Stopped PRN anti- hypertensive. If she has extremely elevated BP or is symptomatic with elevated BP, can consider labetalol or metoprolol. 5. Leukocytosis. No signs or symptoms of an infectious etiology. Likely secondary to acute inflammatory process with PE. Monitor. Dispo: pending clinical improvement. Will plan to establish care with Dr. Kayla carpenter as an outpatient. Subjective Patient feels less short of breath now as compared to on arrival, though only at rest. When she moves around in bed she starts to feel short of breath. Continues to have mild tachycardia to low 100s. Still using 5LNC, saturating well. Does not endorse any chest pain, nausea, dizziness, fevers. Some frontal headache. Admits to not seeing a PCP in many years. Does not have a family history of blood clots. No prolonged sitting or lying down. No long plane or car rides. Has not had health maintenance cancer screening in many years. Review of Systems Review of Systems: All systems reviewed & are unremarkable except as noted in HPI & below Constitutional: + malaise; no fever and no chills Respiratory: + dyspnea; no cough Cardiovascular: no chest pain, no palpitations and no edema Gastrointestinal: no abdominal pain, no constipation and no diarrhea/loose stools Genitourinary: no dysuria and no hematuria Physical Exam Constitutional: WD/WN, vitals as above Respiratory: normal respiratory effort, lungs clear to auscultation Cardiovascular: Rate/Rhythm: regular rhythm and + tachycardic Heart Sounds: no murmur Extremities: no edema Gastrointestinal (Abdomen): normal bowel sounds, soft, nontender, no hepatosplenomegaly Skin: no rashes, warm and dry Psychiatric: A+Ox3, euthymic affect Results & Data Results & Data ([facility]) Vital Signs (Past 12 Hours) Vital Signs Temp Pulse Pulse Resp BP BP BP 05/16/20 11:20 36.7 C 108 H 18 139/84 05/16/20 09:00 110 H 157/90 H 05/16/20 07:27 36.9 C 115 H 18 187/101 H 05/16/20 06:15 114 H 05/16/20 05:47 119 H 169/99 H 05/16/20 05:25 36.5 C 118 H 20 169/126 H 05/16/20 04:00 111 H 20 192/133 H 05/16/20 03:37 116 H 22 214/145 H 05/16/20 03:00 20 201/136 H 05/16/20 02:27 113 H 24 190/124 H 05/16/20 01:44 123 H 20 210/122 H 05/16/20 01:00 124 H 14 170/118 H 05/16/20 00:30 126 H 22 147/112 H Pulse Ox 05/16/20 11:20 96 05/16/20 09:00 05/16/20 07:27 95 05/16/20 06:15 05/16/20 05:47 05/16/20 05:25 92 05/16/20 04:00 93 05/16/20 03:37 93 05/16/20 03:00 93 05/16/20 02:27 92 05/16/20 01:44 92 05/16/20 01:00 94 05/16/20 00:30 95 Resident Activity Tracking Resident Involvement: Resident Care Provided Care Provided: Adult Hospital Medicine
--- NOTE | 2020-05-16 13:16 | Electrocardiogram Report ---
Test Reason : Blood Pressure : / mmHG Vent. 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
[2020-05-16 15:17] LABS: Partial Thromboplastin Ratio 1.6; Partial Thromboplastin Time 40.8 Seconds (21.0-31.0)
[2020-05-16] MEDS ORDERED: POTASSIUM CHLORIDE CRTAB 20 MEQ TABCR PO STA (15:51)
[2020-05-16 23:01] LABS: Partial Thromboplastin Ratio 1.6; Partial Thromboplastin Time 43.2 Seconds (21.0-31.0)
[2020-05-17 05:58] LABS: Basophils # (auto) 0.02 K/uL (0-0.2); Basophils % (auto) 0.2 %; Eosinophils # (auto) 0.37 K/uL (0-0.5); Eosinophils % (auto) 3.4 %; Hematocrit (blood only) 40.3 % (37-47); Hemoglobin 13.8 g/dL (12.0-16.0); Immature Granulocytes # (auto) 0.02 K/uL (0.00-0.02); Immature Granulocytes % (auto) 0.2 %; Lymphocytes # (auto) 3.53 K/uL (1.2-3.4); Lymphocytes % (auto) 32.7 %; Mean Corpuscular Hemoglobin 31.4 pg (25-34); Mean Corpuscular Hgb Conc 34.2 g/dL (32-36); Mean Corpuscular Volume 91.6 fL (80-100); Mean Platelet Volume 9.3 fL (7.4-10.4); Monocytes # (auto) 0.79 K/uL (0.11-0.59); Monocytes % (auto) 7.3 %; Neutrophils # (auto) 6.07 K/uL (1.4-6.5); Neutrophils % (auto) 56.2 %; Platelet Count 197 K/uL (130-400); RDW Coefficient of Variation 12.7 % (11.5-14.5); RDW Standard Deviation 42.7 fL (36.4-46.3)
[2020-05-17 06:18] LABS: Partial Thromboplastin Ratio 1.9
[2020-05-17 06:19] LABS: Partial Thromboplastin Time 50.8 Seconds (21.0-31.0)
[2020-05-17 06:22] LABS: BUN Creatinine Ratio 14.2 (10-20); Calcium 8.5 mg/dl (8.5-10.1); Creatinine Clr Calc Pharmacy 83.3 ml/min; Est GFR (African American) 87.1; Est GFR (Non-African American) 75.2; Potassium 3.5 mmol/L (3.5-5.1)
[2020-05-17] MEDS ORDERED: INSULIN GLARGINE SOLOSTAR 100 UNITS/ML 3 ML PEN SC SCH (09:00)
[2020-05-17] MEDS ORDERED: DICLOFENAC SOD 1% GEL 100 GM TUBE EXT SCH (09:15)
[2020-05-17] MEDS: HEPARIN SODIUM/DEXTROSE 25,000 UNITS/500 ML BAG IV SCH ×2 (09:54→17:22)
[2020-05-17] MEDS: INSULIN ASPART 100 UNITS/ML 3 ML PEN SC SCH ×4 (09:59→20:22)
[2020-05-17] MEDS ORDERED: INSULIN GLARGINE SOLOSTAR 100 UNITS/ML 3 ML PEN SC ONE (10:00)
[2020-05-17] MEDS ORDERED: lisinopril 20 MG TAB PO ONE (10:15)
--- NOTE | 2020-05-17 10:33 | Hospitalist Progress Note ---
Date of Service May 17, 2020 Assessment & Plan (1) Pulmonary emboli: 65-year-old female with no past medical history listed (does not have a PCP) presents with concerns of shortness of breath found to have multiple pulmonary emboli and hyperglycemia. Pulmonary emboli: On admission with significant SOB, elevated d-dimer to 9100. Chest CTA showed extensive bilateral pulmonary emboli with evidence for right- sided heart strain. Venous Doppler of bilateral lower extremity without evidence of DVT. Heparin gtt started, will continue for now with eventual transition to DOAC, possibly tomorrow. -Can consider Xarelto 15mg BID for one month, followed by 15mg BID following. Continue PRN supplemental oxygen, with titration off as able. Would consider this event unprovoked as no known risk factors, no precipitating events. Will require routine cancer screening in outpatient setting such as PAP, colonoscopy, mammography to rule out cancer as cause of PE, especially in the setting of no clear precipitating factors. Elevated troponin/Tachycardia: Initial EKG with sinus tachycardia with right bundle branch block and possible ST segment elevation in the inferior leads. Troponin trend 0.174 -> 0.381 -> 0.302 without chest pain. Likely secondary to demand ischemia in setting of tachycardia and right heart strain due to PE. Echocardiogram ordered to evaluate EF and wall motion for abnormalities; read is pending. -Tachycardia has since resolved. Newly diagnosed DM2: On admission glucose 410, beta hydroxybutyric acid 6.86. No acidosis or anion gap. Hgb A1c of 8.5%. Given IV regular insulin 10 units in ED. Continue to titrate insulin with goal of once daily Lantus with likely metformin either on discharge or on follow up outpatient visit. -Lantus 30u daily with SSI, titrate as needed. -informatics educator consulted. -Consider lipid panel while admitted, however given diagnosis of DM2 patient should be on moderate intensity statin regardless. -Atorvastatin 40mg daily added to patient's daily regimen. Hypertension: BP as high as 214/145 in ED, without signs of end-organ damage. Patient started on IRINA inhibitor (lisinopril 20mg daily) with more normalized BP yesterday afternoon. Will further increase lisinopril today to 40mg daily given still with HTN, though significantly improved. BMP daily while admitted to monitor renal function, with BMP / urine microalbumin in outpatient setting to monitor renal function about 1 week after discharge. Pulmonary nodule: On CTA was noted to have two 4 mm indeterminate pulmonary nodules. Given unclear cause of PE, may require yearly CT to follow nodules. No history of smoking. Hypokalemia: Repleted with KCl 40meq PO on 05/16. CODE STATUS: Full code FEN/GI: DM2 diet DVT prophylaxis: Heparin gtt with eventual transition to DOAC Dispo: Med/Surg with Telemetry. Patient will follow up with Dr. Samayoa on discharge. Admission and Anticipated Discharge Date Admission Date: May 16, 2020 Supervising Physician Co-Signing Physician Notes Patient seen and examined independently of PGY-2 Dr. Samayoa. Agree with history, exam findings, assessment and plan of care as outlined. In brief, Ms. Tubbs is a 65 year old previously health female admitted with dyspnea, tachycardia found to have multiple bilateral PE, hyperglycemia and elevated blood pressures. Feeling a bit overwhelmed and nervous, especially regarding PE. Feels that she can handle having a new diagnosis of DM and HTN (HTN runs in the family) and manage with medication, lifestyle changes. However, she has heard that people from PEs. She is a little bit dyspneic with walking, but overall, has been feeling better since admission. She has met with the informatics educator. Vital signs and nursing notes reviewed. Worried and anxious appearing. Tearful at times. Breathing comfortably on 3L NC. Speaking in full sentences. Lungs are clear to auscultation without wheezes, ronchi or rales. Heart with regular rate the rhythm. No lower extremity edema. 1. Bilateral PE. Unprovoked. CTA with multiple bilateral PE and evidence of right heart strain. Venous Doppler of the bilateral lower extremities is negative for DVT. On heparin gtt with plans to transition to DOAC prior to discharge. Continues to require supplemental O2. Will wean down as we are able. TTE pending. 2. Elevated troponin. Likely demand ischemia with tachycardia and PE. Has peaked and downtrended. 3. Hyperglycemia. Diagnostic of DM. A1C 8.5. Received 10u regular insulin in the ED. Increase Lantus to 30U daily with sliding scale. Will adjust lantus based on sliding scale needs. elementary educator consulted. Goal is to discharge with daily lantus without sliding scale and start on metformin on discharge. On IRINA inhibitor (see below). Started atorvastatin 40mg. Will need urine microalbumin and lipid profile as an outpatient. 4. Hypertension. New diagnosis. Blood pressures are still elevated. Increase Lisinopril to 40mg. Stopped PRN anti-hypertensive. If she has extremely elevated BP or is symptomatic with elevated BP, can consider labetalol or metoprolol. 5. Leukocytosis. Improving. No signs or symptoms of an infectious etiology. Likely secondary to acute inflammatory process with PE. Dispo: pending clinical improvement. Will plan to establish care with Dr. Samayoa as an outpatient. Subjective No acute events overnight. Supplemental oxygen was able to be decreased to 3LNC from 5LNC, and patient has not had tachycardia since around 11am yesterday. Liana still endorses some dyspnea with activity such as getting up in bed, however better than yesterday. No chest pain, nausea, abdominal pain, headache, dizziness, fevers. Review of Systems Review of Systems: All systems reviewed & are unremarkable except as noted in HPI & below Constitutional: no fever and no chills Respiratory: + dyspnea (improved compared to yesterday); no cough Cardiovascular: no chest pain, no palpitations and no edema Gastrointestinal: no abdominal pain, no constipation and no diarrhea/loose stools Genitourinary: no dysuria and no hematuria Physical Exam Constitutional: WD/WN, vitals as above Respiratory: normal respiratory effort, lungs clear to auscultation Cardiovascular: RRR, no murmur, no edema Gastrointestinal (Abdomen): normal bowel sounds, soft, nontender, no hepatosplenomegaly Skin: no rashes, warm and dry Psychiatric: A+Ox3, euthymic affect Results & Data Results & Data ([facility]) Vital Signs (Past 12 Hours) Vital Signs Temp Pulse Pulse Resp BP Pulse Ox 05/17/20 07:52 87 05/17/20 07:28 36.8 C 89 18 158/99 H 95 05/17/20 04:00 36.9 C 80 20 164/78 H 99 05/16/20 22:55 92 H 05/16/20 22:54 36.8 C 82 20 133/82 96 Resident Activity Tracking Resident Involvement: Resident Care Provided Care Provided: Adult [facility]
[2020-05-17] MEDS: lisinopril 20 MG TAB PO SCH (11:21)
[2020-05-17] MEDS: DICLOFENAC SOD 1% GEL 100 GM TUBE EXT SCH ×3 (12:27→21:04)
--- NOTE | 2020-05-17 14:12 | XCELERA ---
[id number]
--- NOTE | 2020-05-17 15:04 | Electrocardiogram Report ---
Test Reason : Blood Pressure : / mmHG Vent. Rate : 093 BPM Atrial Rate : 093 BPM P-R Int : 168 ms QRS Dur : 134 ms QT Int : 406 ms P-R-T Axes : 036 111 -53 degrees QTc Int : 504 ms Normal sinus rhythm Right bundle branch block Left posterior fascicular block Bifascicular block Inferior infarct (cited on or before 16-MAY-2020) T wave abnormality, consider anterolateral ischemia Abnormal ECG When compared with ECG of 16-MAY-2020 06:04, T wave inversion now evident in Lateral leads Confirmed by Subhash Pacheco ([id number]) on 05/17/2020 3:03:41 PM Referred By: REFERRED SELF Confirmed By:Subhash Pacheco
--- NOTE | 2020-05-17 20:24 | Billing Data ---
Date of Service May 17, 2020 Coding Level of Care Code 09779 Initial Inpt Care Lvl 3
[2020-05-18] MEDS: DICLOFENAC SOD 1% GEL 100 GM TUBE EXT SCH ×3 (06:34→21:06)
[2020-05-18 08:07] LABS: Hematocrit (blood only) 38.1 % (37-47); Hemoglobin 12.9 g/dL (12.0-16.0); Mean Corpuscular Hemoglobin 31.2 pg (25-34); Mean Corpuscular Hgb Conc 33.9 g/dL (32-36); Mean Platelet Volume 9.3 fL (7.4-10.4); Platelet Count 187 K/uL (130-400); RDW Coefficient of Variation 12.7 % (11.5-14.5); Red Blood Count 4.14 M/uL (4.2-5.4); White Blood Count 9.09 K/uL (4.8-10.8)
[2020-05-18] MEDS: HEPARIN SODIUM/DEXTROSE 25,000 UNITS/500 ML BAG IV SCH ×3 (08:14→11:20)
[2020-05-18] MEDS: INSULIN ASPART 100 UNITS/ML 3 ML PEN SC SCH ×4 (08:15→21:03)
[2020-05-18] MEDS: ATORVASTATIN 40 MG TAB PO SCH (08:16)
[2020-05-18] MEDS: INSULIN GLARGINE SOLOSTAR 100 UNITS/ML 3 ML PEN SC SCH (08:16)
[2020-05-18] MEDS: lisinopril 40 MG TAB PO SCH (08:16)
[2020-05-18 08:32] LABS: Partial Thromboplastin Ratio 1.7
[2020-05-18 08:33] LABS: Partial Thromboplastin Time 45.8 Seconds (21.0-31.0)
[2020-05-18 08:45] LABS: BUN Creatinine Ratio 13.7 (10-20); Calcium 8.9 mg/dl (8.5-10.1); Creatinine Clr Calc Pharmacy 90.1 ml/min; Est GFR (African American) 95.6; Est GFR (Non-African American) 82.5; Potassium 3.5 mmol/L (3.5-5.1)
--- NOTE | 2020-05-18 10:25 | Hospitalist Progress Note ---
Date of Service May 18, 2020 Assessment & Plan (1) Pulmonary emboli: 65-year-old female with no past medical history listed (does not have a PCP) presents with concerns of shortness of breath found to have multiple pulmonary emboli and hyperglycemia. Pulmonary emboli: On admission with significant SOB, elevated d-dimer to 9100. Chest CTA showed extensive bilateral pulmonary emboli with evidence for right- sided heart strain. Venous Doppler of bilateral lower extremity without evidence of DVT. start Eliquis 10mg BID today, discontinue heparin drip Continue to wean supplemental oxygen, weaned off this afternoon Will require routine cancer screening in outpatient setting such as PAP, colonoscopy, mammography to rule out cancer as cause of PE, especially in the setting of no clear precipitating factors. Elevated troponin/Tachycardia: Initial EKG with sinus tachycardia with right bundle branch block and possible ST segment elevation in the inferior leads. Troponin trend 0.174 -> 0.381 -> 0.302 without chest pain. Likely secondary to demand ischemia in setting of tachycardia and right heart strain due to PE. Echocardiogram ordered to evaluate EF and wall motion for abnormalities; read is pending. -Tachycardia has since resolved. Newly diagnosed DM2: On admission glucose 410, beta hydroxybutyric acid 6.86. No acidosis or anion gap. Hgb A1c of 8.5%. Given IV regular insulin 10 units in ED. Continue to titrate insulin with goal of once daily Lantus with likely metformin either on discharge or on follow up outpatient visit. -Lantus 30u daily with SSI, titrate as needed. -health promotion educator consulted. -Atorvastatin 40mg daily Hypertension: BP as high as 214/145 in ED, without signs of end-organ damage. Patient started on IRINA inhibitor (lisinopril 20mg daily) with more normalized BP yesterday afternoon. Will further increase lisinopril today to 40mg daily given still with HTN, though significantly improved. BMP daily while admitted to monitor renal function, with BMP / urine microalbumin in outpatient setting to monitor renal function about 1 week after discharge. Pulmonary nodule: On CTA was noted to have two 4 mm indeterminate pulmonary nodules. Given unclear cause of PE, may require yearly CT to follow nodules. No history of smoking Admission and Anticipated Discharge Date Admission Date: May 16, 2020 Supervising Physician Co-Signing Physician Notes I personally examined the patient and verified all richard points of history and exam, discussed case, and agree with decision making with Dr Anderson. feeling better, walked w PT still anxious about going home, but willing to try to get more active, willing to try to wean O2 vitals noted nad heent nc at mmm breathing unlabored no accessory muscles good effort skin no rashes no pallor or icterus 1. Bilateral PE. Unprovoked. CTA with multiple bilateral PE and evidence of right heart strain. start DOAC. increase activity, wean O2 2. Elevated troponin. Likely demand ischemia with tachycardia and PE. 3. new dx DM - ongoing med management, outpt PCP management, lifestyle change should help 4. Hypertension. New diagnosis. BP currently adequate 5. Leukocytosis. Improving. No signs or symptoms of an infectious etiology. Likely secondary to acute inflammatory process with PE. Dispo: hopefully home tomorrow Subjective Patient doing overall well this morning, continuing to have high amount of anxiety in regards to the extent of medical diagnoses that she feels have been sprung on her since coming to the hospital. Is concerned about her ability, or potential inability, to make the changes that are needed to make sure that her blood sugars stay under control. Having a harder time getting off of the oxygen supplementation as she feels more comfortable with them on. Is able to take deep breaths without pains, does not feel short of breath, no chest pains. Review of Systems Review of Systems: All systems reviewed & are unremarkable except as noted in Subjective Physical Exam Constitutional: WD/WN, vitals as above Eyes: PERRL, conjunctivae normal, anicteric sclerae ENMT: external ear and nose normal, oropharynx normal Cardiovascular: Rate/Rhythm: regular rate and regular rhythm Heart Sounds: no gallop, no murmur and no cardiac rub Vessels: normal peripheral pulses Gastrointestinal (Abdomen): normal bowel sounds, soft, nontender, no hepatosplenomegaly Skin: no rashes, warm and dry Neurologic: PERRL, EOMI, accommodation nl, no face palsy, no dysarthria Psychiatric: Orientation: alert and oriented x 3 Results & Data Results & Data ([facility]) Vital Signs (Past 12 Hours) Vital Signs Temp Pulse Pulse Resp BP Pulse Ox 05/18/20 07:22 36.7 C 78 16 146/81 H 99 05/18/20 03:44 37 C 82 19 150/91 H 95 05/17/20 23:14 36.7 C 84 20 156/93 H 98 05/17/20 23:13 78 Laboratory Results 05/18/20 05/18/20 05/18/20 Range/Units 16:32 14:27 11:27 WBC (4.8-10.8) K/uL RBC (4.2-5.4) M/uL Hgb (12.0-16.0) g/dL Hct (37-47) % MCV (80-100) fL MCH (25-34) pg MCHC (32-36) g/dL RDW Std Deviation (36.4-46.3) fL RDW Coeff of Jose Juan (11.5-14.5) % Plt Count (130-400) K/uL MPV (7.4-10.4) fL APTT 47.9 H* (21.0-31.0) Seconds PTT Ratio 1.8 Sodium (136-145) mmol/L Potassium (3.5-5.1) mmol/L Chloride (98-107) mmol/L Carbon Dioxide (21-32) mmol/L Anion Gap (3-11) BUN (7-18) mg/dl Creatinine (0.6-1.2) mg/dl Est Cr Clr Drug Dosing ml/min Est GFR ( Amer) Est GFR (Non-Af Amer) BUN/Creatinine Ratio (10-20) Glucose (70-99) mg/dl POC Glucose 156 H 164 H (70-99) mg/dl Calcium (8.5-10.1) mg/dl 05/18/20 05/18/20 05/18/20 Range/Units 07:47 07:47 07:47 WBC 9.09 (4.8-10.8) K/uL RBC 4.14 L (4.2-5.4) M/uL Hgb 12.9 (12.0-16.0) g/dL Hct 38.1 (37-47) % MCV 92.0 (80-100) fL MCH 31.2 (25-34) pg MCHC 33.9 (32-36) g/dL RDW Std Deviation 43.0 (36.4-46.3) fL RDW Coeff of Jose Juan 12.7 (11.5-14.5) % Plt Count 187 (130-400) K/uL MPV 9.3 (7.4-10.4) fL APTT 45.8 H* (21.0-31.0) Seconds PTT Ratio 1.7 Sodium 139 (136-145) mmol/L Potassium 3.5 (3.5-5.1) mmol/L Chloride 109 H (98-107) mmol/L Carbon Dioxide 24 (21-32) mmol/L Anion Gap 6.0 (3-11) BUN 10 (7-18) mg/dl Creatinine 0.75 (0.6-1.2) mg/dl Est Cr Clr Drug Dosing 90.1 ml/min Est GFR ( Amer) 95.6 Est GFR (Non-Af Amer) 82.5 BUN/Creatinine Ratio 13.7 (10-20) Glucose 145 H (70-99) mg/dl POC Glucose (70-99) mg/dl Calcium 8.9 (8.5-10.1) mg/dl 05/18/20 05/17/20 Range/Units 07:30 20:14 WBC (4.8-10.8) K/uL RBC (4.2-5.4) M/uL Hgb (12.0-16.0) g/dL Hct (37-47) % MCV (80-100) fL MCH (25-34) pg MCHC (32-36) g/dL RDW Std Deviation (36.4-46.3) fL RDW Coeff of Jose Juan (11.5-14.5) % Plt Count (130-400) K/uL MPV (7.4-10.4) fL APTT (21.0-31.0) Seconds PTT Ratio Sodium (136-145) mmol/L Potassium (3.5-5.1) mmol/L Chloride (98-107) mmol/L Carbon Dioxide (21-32) mmol/L Anion Gap (3-11) BUN (7-18) mg/dl Creatinine (0.6-1.2) mg/dl Est Cr Clr Drug Dosing ml/min Est GFR ( Amer) Est GFR (Non-Af Amer) BUN/Creatinine Ratio (10-20) Glucose (70-99) mg/dl POC Glucose 158 H 195 H (70-99) mg/dl Calcium (8.5-10.1) mg/dl Resident Activity Tracking Resident Involvement: Resident Care Provided Care Provided: Adult Hospital Medicine
[2020-05-18 15:18] LABS: Partial Thromboplastin Ratio 1.8
[2020-05-18 15:23] LABS: Partial Thromboplastin Time 47.9 Seconds (21.0-31.0)
--- NOTE | 2020-05-18 19:27 | Billing Data ---
Date of Service May 18, 2020 Coding Level of Care Code 10659 Subseq Hosp Care Lvl 3
[2020-05-18] MEDS: APIXABAN 5 MG TABLET PO SCH (20:59)
[2020-05-19] MEDS: DICLOFENAC SOD 1% GEL 100 GM TUBE EXT SCH ×2 (06:40→14:14)
[2020-05-19] MEDS: ATORVASTATIN 40 MG TAB PO SCH (08:06)
[2020-05-19] MEDS: lisinopril 40 MG TAB PO SCH (08:07)
[2020-05-19] MEDS: APIXABAN 5 MG TABLET PO SCH (08:07)
[2020-05-19] MEDS: INSULIN GLARGINE SOLOSTAR 100 UNITS/ML 3 ML PEN SC SCH (08:08)
[2020-05-19] MEDS: INSULIN ASPART 100 UNITS/ML 3 ML PEN SC SCH ×3 (08:09→17:14)
--- NOTE | 2020-05-19 10:03 | Discharge Summary ---
Date of Service May 19, 2020 Admission HPI Per Admitting Provider 65-year-old female with no past medical history listed (does not have a PCP) presents with concerns of shortness of breath that started this evening. Similar occurrence last Monday but none ever before then. Noted that she got up from the bedroom to go to the bathroom and became dyspneic. Described as feeling like she had a panic attack, which is not new for her. Duration on and off from time EMS picked her up to arrival in ER. 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 Associated palpitations. Denies any associated chest pain, syncope or near syncope, edema, diaphoresis. Pertinent labs: WBC 12.43, sodium 134, creatinine 1.25, glucose 410, troponin 0 0.174, beta hydroxybutyric acid 6.86 EKG: Sinus tachycardia at 128 with a right bundle branch block and possible ST segment elevation in the inferior leads ABG: pH 7.42, PCO2 33, PO2 65, HCO3 21 Chest CTA ([facility]): Multiple filling defect identified at the distal right pulmonary artery extending into the proximal upper or lower and middle lobe pulmonary artery and then into the mid proximal segmental branches. Similarly, on the left there are filling defect identified at the distal left pulmonary artery then extending into the origin of the left upper lobe and left lower lobe pulmonary artery and corresponding mid proximal segmental branches. ER course: IV heparin gtt, IV insulin human regular 10 units, NSS Principal Diagnosis Pulmonary embolism Discharge Exam Constitutional WD/WN, vitals as above Eyes PERRL, conjunctivae normal, anicteric sclerae ENMT external ear and nose normal, oropharynx normal Cardiovascular Rate/Rhythm: regular rate and regular rhythm Heart Sounds: no gallop, no murmur and no cardiac rub Vessels: normal peripheral pulses Gastrointestinal (Abdomen) normal bowel sounds, soft, nontender, no hepatosplenomegaly Skin no rashes, warm and dry Neurologic PERRL, EOMI, accommodation nl, no face palsy, no dysarthria Psychiatric Orientation: alert and oriented x 3 Discharge Data Allergies Allergy/AdvReac Type Severity Reaction Status Date / Time Penicillins Allergy Intermediate Gastrointestinal Verified 05/16/20 01:13 Upset Consultations 05/16/20 02:50 ED Decision to Admit Stat Ordered Studies 05/16/20 01:36 CT angio chest PE protocol Urgent 05/16/20 04:56 US venous doppler LE Urgent Diabetes Follow up Diabetes Follow-up Needed for Newly Diagnosed Diabetes Hospital Course (1) Pulmonary emboli: 65-year-old female with no past medical history listed (does not have a PCP) presents with concerns of shortness of breath found to have multiple pulmonary emboli and hyperglycemia. Pulmonary emboli: On admission with significant SOB, elevated d-dimer to 9100. Chest CTA showed extensive bilateral pulmonary emboli with evidence for right- sided heart strain. Venous Doppler of bilateral lower extremity without evidence of DVT. continue Eliquis 10mg BID for 7 days total, before de-escalation to 5mg BID Newly diagnosed DM2: -On admission glucose 410, beta hydroxybutyric acid 6.86. No acidosis or anion gap. -Hgb A1c of 8.5%. -Started on Metformin 500mg BID -provided with One Touch Verio test strips, delica lancets, and Verio monitor to check BSGs once daily -Atorvastatin 40mg daily Hypertension: BP as high as 214/145 in ED, without signs of end-organ damage continue lisinopril 40mg daily Pulmonary nodule: On CTA was noted to have two 4 mm indeterminate pulmonary nodules. Given unclear cause of PE, may require yearly CT to follow nodules. No history of smoking Health Maintenance: Will require routine cancer screening in outpatient setting such as PAP, colonoscopy, and mammography. Total Time Total Time Spent Total Time Spent (In Minutes): <30 Discharge Plan Discharge Items Patient Disposition: Home - Self-Care Reason For Visit: PE Discharge Diagnosis: Pulmonary embolism Activity: Per Instructions section Non-emergency contact: Primary Care Provider Call non-emergency contact if: you have any medication questions, your symptoms worsen and you have a fever Follow-up/Referrals: Elvira Samayoa DO [Resident] - Bakari Anderson MD [Resident] - 06/01/20 12:50 pm PCP,NO [Primary Care Provider] - Diet: Carb Consistent or DM2 Addtl Attending Provider Instructions: You were seen and admitted for concern of shortness of breath; during this admission it was discovered that your had blood clots within your lungs that had developed. Additionally, it was discovered through monitoring of your blood sugars that you have diabetes. As a result of this you are going to be going home on several new medications, these will include: -Eliquis (for your blood clots) which for the next 6 days you will take two pills twice a day, before decreasing to 1 pill twice a day for the coming several months -Metformin (for your blood sugars) that you will take twice a day going forward to help control your blood sugars -Lisinopril (for your blood pressure) that you will take once a day to protect your kidneys with your blood sugars -Atorvastatin (for your cholesterol) that you take once a day You are also being set-up with test strips, lancets, and a monitor to your blood sugar once a day going forward. You will have follow-up with Dr. Anderson at the [facility] clinic on June 02 at 12:50pm, at [address], [place] [address]. Pending Studies at Discharge: No Stand-Alone Forms: My [facility], Smoking Cessation Medications and DC Order Prescriptions: New atorvastatin 40 mg Tablet 40 mg PO QAM 30 Days Qty: 30 RF: 0 lisinopril [Zestril] 40 mg Tablet 40 mg PO QAM 30 Days Qty: 30 RF: 0 Eliquis 5 mg Tablet See Rx Instructions .ROUTE .COMPLEX 30 Days Qty: 60 RF: 0 metformin 500 mg tablet 500 mg PO BID 30 Days Qty: 60 RF: 0 (DME) lancets [OneTouch Delica Lancets] 33 gauge misc See Rx Instructions .ROUTE .MEDSUPPLY Qty: 100 RF: 0 (DME) blood-glucose meter [OneTouch Verio Flex Start] Kit See Rx Instructions .ROUTE .MEDSUPPLY Qty: 1 RF: 0 (DME) OneTouch Verio test strips Strip See Rx Instructions .ROUTE .MEDSUPPLY Qty: 10 RF: 0 Continued Anacin 400-32 mg Tablet 1 tab PO Q4H PRN (Reason: Pain) RF: 0 Discontinued Elvin Back and Body 500-32.5 mg Tablet 1 - 2 tab PO Q4 PRN (Reason: Pain) RF: 0 Discharge Orders: Discharge Order (Routine); Ordered 05/19/20 Ordered By: Bakari Kaur/Other Patient Handouts: Managing Diabetes: The A1C Test Admission Data Admit Date/Time: 05/16/20 03:41 Attending Provider: Dillon Huber Admit Provider: Denzel Kelly Primary Care Provider: PCP,NO Other Providers: Gilberto Alvarado ; Harpreet Rivera Other Interventions: Discharge Summary Assessment (RN) Last Done: 05/19/20 11:36 Supervising Physician Co-Signing Physician Notes I personally examined the patient and verified all richard points of history and exam, discussed case, and agree with decision making with Dr Anderson. feeling up to go home vitals noted nad heent nc at mmm breathing unlabored no accessory muscles good effort skin no rashes no pallor or icterus 1. Bilateral PE. Unprovoked. CTA with multiple bilateral PE and evidence of right heart strain. stable for home on DOAC 2. Elevated troponin. probably RV strain from PE 3. new dx DM - ongoing med management, outpt PCP management, lifestyle change should help - educated prior to dc. metformin 4. Hypertension. New diagnosis. BP currently adequate 5. Leukocytosis. Improved. No signs or symptoms of an infectious etiology. Likely secondary to acute inflammatory process with PE. Dispo: hopefully home tomorrow Resident Activity Tracking Resident Involvement: Resident Care Provided Care Provided: Adult Hospital Medicine
--- NOTE | 2020-05-19 17:23 | Billing Data ---
Date of Service May 19, 2020 Coding Level of Care Code D/C Day Management <30 mins
== END 2020-05-19 17:35 | disposition home or self-care (01) | DRG 176 ==
LOC: ED 23:49 → 2N 05-16 03:41 → SUATTDRO 05-16 03:41 → 2N 05-16 04:34